=== PATIENT | male | born 1985 | race Caucasian/White ===

== ENCOUNTER 2018-06-15 10:18 | Emergency (ER) | payer OTHER ==
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
[2018-06-15 11:33] VITALS: BP 148/76
== END 2018-06-15 11:37 | disposition home or self-care (01) ==
DX: S43.101A Unspecified dislocation of right acromioclavicular joint, initial encounter (principal); V18.0XXA Pedal cycle driver injured in noncollision transport accident in nontraffic accident, initial encounter; Y93.55 Activity, bike riding; Y92.410 Unspecified street and highway as the place of occurrence of the external cause; Y99.8 Other external cause status